=== PATIENT | female | born 1960 | race Caucasian/White ===

== ENCOUNTER → 2018-11-03 10:30 | Outpatient (CLI) | payer OTHER | END | disposition home or self-care (01) | LOC: D.RAD 10:30 | PROVIDERS: ATTEND Pain Medicine Interventional Pain Medicine | DX: M54.40 Lumbago with sciatica, unspecified side (principal); M47.817 Spondylosis without myelopathy or radiculopathy, lumbosacral region; M47.897 Other spondylosis, lumbosacral region; M47.892 Other spondylosis, cervical region; M54.2 Cervicalgia; G89.4 Chronic pain syndrome ==